=== PATIENT | female | born 2000 | race Caucasian/White ===

== ENCOUNTER 2024-10-12 09:34 | Outpatient (RCR) | payer OTHER, SELFPAY | END 2024-10-12 23:59 | disposition home or self-care (01) | LOC: ROT 09:34 | PROVIDERS: ATTENDING PHYSICIAN Family Medicine | DX: S54.2 Injury of radial nerve at forearm level (principal); Z73.6 Limitation of activities due to disability; V13.4XXD Pedal cycle driver injured in collision with car, pick-up truck or van in traffic accident, subsequent encounter; Z87.820 Personal history of traumatic brain injury | CPT/HCPCS: 97166; 97535 ==

== ENCOUNTER 2024-11-04 12:57 | Outpatient (RCR) | payer OTHER, SELFPAY | END 2024-11-04 23:59 | disposition home or self-care (01) | LOC: RPT 12:57 | PROVIDERS: ATTENDING PHYSICIAN Family Medicine | DX: S54.2 Injury of radial nerve at forearm level (principal); Z73.6 Limitation of activities due to disability; S06.0XAD Concussion with loss of consciousness status unknown, subsequent encounter; F07.81 Postconcussional syndrome; G44.329 Chronic post-traumatic headache, not intractable; H53.149 Visual discomfort, unspecified; R42 Dizziness and giddiness; V13.4XXD Pedal cycle driver injured in collision with car, pick-up truck or van in traffic accident, subsequent encounter; Z87.820 Personal history of traumatic brain injury | CPT/HCPCS: 97010; 97110; 97112; 97140; 97163; 97530 ==

== ENCOUNTER 2024-12-13 12:10 | Outpatient (RCR) | payer OTHER, SELFPAY | END 2024-12-13 23:59 | disposition home or self-care (01) | LOC: RST 12:10 | PROVIDERS: ATTENDING PHYSICIAN Family Medicine | DX: S54.2 Injury of radial nerve at forearm level (principal); Z73.6 Limitation of activities due to disability; S06.0XAD Concussion with loss of consciousness status unknown, subsequent encounter; F07.81 Postconcussional syndrome; S06.309D Unspecified focal traumatic brain injury with loss of consciousness of unspecified duration, subsequent encounter; G44.329 Chronic post-traumatic headache, not intractable; H53.149 Visual discomfort, unspecified; R42 Dizziness and giddiness; V13.4XXD Pedal cycle driver injured in collision with car, pick-up truck or van in traffic accident, subsequent encounter; R41.840 Attention and concentration deficit; R41.841 Cognitive communication deficit; Z87.820 Personal history of traumatic brain injury | CPT/HCPCS: 96125; 97010; 97014; 97110; 97112; 97129; 97130; 97140; 97530; 97535; 97760 ==

== ENCOUNTER 2025-01-11 08:11 | Outpatient (RCR) | payer OTHER, SELFPAY | END 2025-01-11 23:59 | disposition home or self-care (01) | LOC: RST 08:11 | PROVIDERS: ATTENDING PHYSICIAN Family Medicine | DX: S54.2 Injury of radial nerve at forearm level (principal); Z73.6 Limitation of activities due to disability; S06.0XAD Concussion with loss of consciousness status unknown, subsequent encounter; S06.309D Unspecified focal traumatic brain injury with loss of consciousness of unspecified duration, subsequent encounter; F07.81 Postconcussional syndrome; G44.329 Chronic post-traumatic headache, not intractable; H53.149 Visual discomfort, unspecified; R42 Dizziness and giddiness; R41.840 Attention and concentration deficit; R41.841 Cognitive communication deficit; V13.4XXD Pedal cycle driver injured in collision with car, pick-up truck or van in traffic accident, subsequent encounter; Z87.820 Personal history of traumatic brain injury | CPT/HCPCS: 97010; 97014; 97110; 97112; 97129; 97130; 97140; 97530; 97535 ==

== ENCOUNTER 2025-02-04 08:13 | Outpatient (RCR) | payer OTHER, SELFPAY | END 2025-02-04 23:59 | disposition home or self-care (01) | LOC: RST 08:13 | PROVIDERS: ATTENDING PHYSICIAN Family Medicine | DX: S54.2 Injury of radial nerve at forearm level (principal); Z73.6 Limitation of activities due to disability; S06.0XAD Concussion with loss of consciousness status unknown, subsequent encounter; S06.309D Unspecified focal traumatic brain injury with loss of consciousness of unspecified duration, subsequent encounter; F07.81 Postconcussional syndrome; G44.329 Chronic post-traumatic headache, not intractable; H53.149 Visual discomfort, unspecified; R42 Dizziness and giddiness; R41.840 Attention and concentration deficit; R41.841 Cognitive communication deficit; V13.4XXD Pedal cycle driver injured in collision with car, pick-up truck or van in traffic accident, subsequent encounter; Z87.820 Personal history of traumatic brain injury | CPT/HCPCS: 97010; 97110; 97112; 97129; 97130; 97140; 97530 ==

== ENCOUNTER 2025-02-28 09:31 | Outpatient (RCR) | payer OTHER, SELFPAY | END 2025-02-28 23:59 | disposition home or self-care (01) | LOC: RST 09:31 | PROVIDERS: ATTENDING PHYSICIAN Family Medicine | DX: S54.2 Injury of radial nerve at forearm level (principal); Z73.6 Limitation of activities due to disability; S06.0XAD Concussion with loss of consciousness status unknown, subsequent encounter; S06.309D Unspecified focal traumatic brain injury with loss of consciousness of unspecified duration, subsequent encounter; F07.81 Postconcussional syndrome; G44.329 Chronic post-traumatic headache, not intractable; H53.149 Visual discomfort, unspecified; R42 Dizziness and giddiness; R41.840 Attention and concentration deficit; R41.841 Cognitive communication deficit; V13.4XXD Pedal cycle driver injured in collision with car, pick-up truck or van in traffic accident, subsequent encounter; Z87.820 Personal history of traumatic brain injury | CPT/HCPCS: 97010; 97110; 97112; 97129; 97130; 97530; 97760 ==